=== PATIENT | female | born 1970 | race Caucasian/White ===

== ENCOUNTER 2020-08-25 15:15 | Emergency (ER) | payer OTHER ==
[~2020-08-25] VITALS: Ht 170.2 cm; Wt 63.5 kg
[~2020-08-25 15:15] MED LIST: KETO10TA2 PO; ORPH100T PO
== END 2020-08-25 18:00 | disposition home or self-care (01) ==
LOC: ER 15:15
DX: R42 Dizziness and giddiness (principal); R11.0 Nausea; R00.2 Palpitations; F41.0 Panic disorder [episodic paroxysmal anxiety]

== ENCOUNTER → 2022-10-09 | Emergency (ER) | payer OTHER ==
[~2022-10-09] VITALS: Ht 170.2 cm; Wt 63.5 kg
== END | disposition left against medical advice (07) ==
LOC: ER 15:01
DX: Z53.21 Procedure and treatment not carried out due to patient leaving prior to being seen by health care provider (principal)

== ENCOUNTER 2023-01-31 15:04 | Emergency (ER) | payer OTHER ==
[~2023-01-31] VITALS: Ht 170.2 cm; Wt 63.5 kg
== END 2023-01-31 19:53 | disposition home or self-care (01) ==
LOC: ER 15:04
DX: K21.00 Gastro-esophageal reflux disease with esophagitis, without bleeding (principal); R11.0 Nausea

== ENCOUNTER 2023-06-29 12:27 | Emergency (ER) | payer OTHER ==
[~2023-06-29] VITALS: Ht 170.2 cm; Wt 62.6 kg
[2023-06-29] MEDS ORDERED: VISTARIL25 MG PO (13:39)
== END 2023-06-29 14:12 | disposition home or self-care (01) ==
LOC: ER 12:27
DX: R00.2 Palpitations (principal)

== ENCOUNTER 2023-07-15 08:26 | Outpatient (CLI) | payer OTHER ==
[~2023-07-15 08:26] MED LIST changes: +VISTARIL25 MG PO
[2023-07-15] MEDS ORDERED: LOPRESSOR25 MG PO (11:21)
[2023-07-15] MEDS ORDERED: CYMBALTA30 MG (11:22)
== END 2023-07-15 08:46 | disposition home or self-care (01) ==
LOC: RAD 08:26
DX: R05.9 Cough, unspecified (principal)

== ENCOUNTER 2023-07-15 10:05 | Emergency (ER) | payer OTHER ==
[~2023-07-15] VITALS: Ht 170.2 cm; Wt 62.6 kg
[2023-07-15] MEDS ORDERED: LOPRESSOR25 MG PO (11:21)
[2023-07-15] MEDS ORDERED: CYMBALTA30 MG (11:22)
[2023-07-15 13:52] LABS: HEMATOCRIT 39.9 % (36.0-45.00); MEAN CELL VOLUME 86.1 fL (80.00-100.00); MEAN CORPUSCULAR HEMOGLOBIN 30.3 pg (27.00-32.0); MEAN CORPUSCULAR HGB CONC 35.2 g/dl (32.0-36.0); PLATELET COUNT 262 K/uL (150-450); RED BLOOD COUNT 4.64 M/uL (4.00-6.00); RED CELL DISTRIBUTION WIDTH 13.4 % (11.5-14.5)
[2023-07-15 14:09] LABS: PH,URINE 6.5 (5.0-8.0); URINE APPEARANCE Clear; URINE BILIRRUBIN Negative (NEGATIVE); URINE BLOOD Negative; URINE COLOR Yellow; URINE GLUCOSE Negative (NEGATIVE); URINE LEUKOCYTE Trace; URINE NITRATE Negative; URINE PROTEIN Negative (NEGATIVE); URINE UROBILINOGEN 0.2 E.U./dl
[2023-07-15 14:13] LABS: URINE BACTERIA 381.6 uL (0.0-1933); URINE EPITHELIAL CELLS 23.1 uL (0.0-38.8); URINE RBC 4.3 uL (0.0-20.8); URINE WBC 16.3 uL (0.0-23.2)
[2023-07-15 14:18] LABS: CALCIUM 9.8 mg/dL (8.5-10.1); CREATININE SERUM 0.75 mg/dL (0.55-1.02); GFR 80.83; POTASSIUM 3.39 mEq/L (3.5-5.1)
== END 2023-07-15 15:12 | disposition home or self-care (01) ==
LOC: ER 10:05
PROVIDERS: General Practice
DX: F41.8 Other specified anxiety disorders (principal)